=== PATIENT | female | born 2000 | race Caucasian/White ===

== ENCOUNTER 2018-08-16 15:04 | Inpatient (IN) ==
[2018-08-16] MEDS ORDERED: ACETYLCYSTEINE IV ONE (15:24)
[2018-08-16] MEDS ORDERED: DEXTROSE 5% IV ONE (15:24)
[2018-08-16 16:32] LABS: Basophils # (auto) 0.01 K/uL (0-0.2); Basophils % (auto) 0.1 %; Eosinophils # (auto) 0.03 K/uL (0-0.5); Eosinophils % (auto) 0.4 %; Hematocrit (blood only) 43.2 % (37-47); Immature Granulocytes # (auto) 0.01 K/uL (0.00-0.02); Immature Granulocytes % (auto) 0.1 %; Lymphocytes # (auto) 1.14 K/uL (1.2-3.4); Lymphocytes % (auto) 13.6 %; Mean Corpuscular Hgb Conc 34.7 g/dL (32-36); Mean Corpuscular Volume 90.8 fL (80-100); Mean Platelet Volume 11.6 fL (7.4-10.4); Monocytes # (auto) 0.45 K/uL (0.11-0.59); Monocytes % (auto) 5.4 %; Neutrophils # (auto) 6.76 K/uL (1.4-6.5); Neutrophils % (auto) 80.4 %; Platelet Count 213 K/uL (130-400); RDW Coefficient of Variation 12.7 % (11.5-14.5); RDW Standard Deviation 42.3 fL (36.4-46.3); Red Blood Count 4.76 M/uL (4.2-5.4)
[2018-08-16 16:35] LABS: Appearance Urine Clear (Clear); Bacteria Urine Automated Negative (Negative); Bilirubin Urine Negative (Negative); Blood Urine 2+ (Negative); Color Urine Yellow; Epithelial Cell Urine Auto >30 /lpf (0-5); Glucose Urine UA Negative (Negative); Ketones Urine Negative (Negative); Leukocyte Esterase Urine Negative (Negative); Nitrite Urine Negative (Negative); Protein Urine 1+ (Negative); RBC Urine Automated 0-4 /hpf (0-4); Specific Gravity Urine 1.016 (1.000-1.030); Urobilinogen Urine Negative (Negative); pH Urine 5.5 (4.5-7.5)
[2018-08-16 16:40] LABS: INR 1.1 (0.9-1.1); Prothrombin Time 11.1 Seconds (9.0-12.0)
[2018-08-16 16:41] LABS: Partial Thromboplastin Ratio 0.9; Partial Thromboplastin Time 25.1 Seconds (21.0-31.0)
[2018-08-16 16:50] LABS: Albumin Level 4.6 gm/dl (3.4-5.0); BUN Creatinine Ratio 12.4 (10-20); Calcium 9.1 mg/dl (8.5-10.1); Creatinine Clr Calc Pharmacy 82.1 ml/min; Est GFR (African American) 95.7; Est GFR (Non-African American) 82.6; Potassium 3.8 mmol/L (3.5-5.1)
[2018-08-16 16:51] LABS: Amphetamines+Metham, Urine Neg (Neg); Barbiturates, Urine Neg (Neg); Benzodiazepine, Urine Neg (Neg); Cocaine, Urine Neg (Neg); MDMA (Ecstacy), Urine Neg (Neg); Methadone, Urine Neg (Neg); Opiate, Urine Neg (Neg); Phencyclidine, Urine Neg (Neg)
[2018-08-16 16:52] LABS: Albumin Globulin Ratio 1.2 (0.9-2); Bilirubin,Total 0.6 mg/dl (0.2-1); Globulin 3.8 gm/dl (2.5-4.0); Total Protein 8.4 gm/dl (6.4-8.2)
[2018-08-16 17:00] LABS: Acetaminophen 32 ug/ml (10-30); Salicylate < 1.7 mg/dl (2.8-20)
--- NOTE | 2018-08-16 17:36 | History & Physical Report ---
Date of Service August 16, 2018 Assessment & Plan (1) Suicide attempt: Denies prior hx of same Attempted to cut L wrist and tylenol ingestion Psych c/s pending (2) Tylenol overdose: [id number] tabs taken Started on NAC protocol Monitor on tele Utox otherwise neg LFTs, PRP in AM (3) Depression: Started on lexapro x3 weeks, likely a side effect of this medication Will hold for now Psych c/s pending for further medication choices (4) IUD (intrauterine device) in place: (5) DVT prophylaxis: SCDs History of Present Illness Primary Care Provider: NO PCP 17 y/o F c/o attempted tylenol overdose. Pt states that she was started on lexapro 3 weeks ago. Since starting this she began having intermittent thoughts of suicide. She had not attempted this prior. She called S four times to discuss this with them, however she did not receive a return call. Today, her boyfriend called her and broke up with her, which she states "put me over the edge". She initially tried to cut her wrists with a pocket knife, but was not able to do this. She then ingested [id number] tabs of tylenol. After she did this she panicked and called her mother, who told her to come to the ED. Pt denies prior hx of SI/SA. She does have a hx of depression. She was on wellbutrin several years ago but this was stopped for ongoing anxiety thought to be caused by the wellbutrin. She had not been on any other medications for her depression until 3 weeks ago. Pt states she is somewhat nauseated now and feels "numb" and "weird". Pt denies fever, SOB, chest pain, abd pain, v/c/d, LE pain or swelling. Allergies Allergy/AdvReac Type Severity Reaction Status Date / Time clarithromycin AdvReac Severe QT Verified 08/16/18 16:36 prolongation QT prolonging medications AdvReac Severe Unknown Uncoded 08/16/18 16:38 Home Medications Home Medications Medication Instructions Recorded Confirmed Type escitalopram oxalate [Lexapro] 5 mg PO DAILY 08/16/18 08/16/18 History Past Med/Surg History Medical History Depression Family History Grandfather Heart attack Social History Feels Safe at Home: Yes Smoking Status: Never smoker Hx Alcohol Use: Yes (once every 3 weeks or so) Hx Substance Use: No Review of Systems Pertinent positives and negatives reviewed in HPI--all others negative Physical Exam Vital Signs (Past 24 Hours): Last Vital Signs Temp 37.1 C 08/16/18 15:07 Pulse 103 H 08/16/18 16:23 Resp 20 08/16/18 16:23 BP 122/74 08/16/18 16:23 Pulse Ox 99 08/16/18 16:23 Constitutional: WD/WN, vitals as above Eyes: normal visual bianchi by confrontation and + anicteric sclerae Neck: normal visual inspection and trachea midline Respiratory: normal respiratory effort, lungs clear to auscultation Cardiovascular: Rate/Rhythm: regular rate and regular rhythm Gastrointestinal (Abdomen): Inspection/Auscultation: abdomen not distended Percussion/Palpation: abdomen soft; abdomen nontender Musculoskeletal: Head/Neck/Chest: normocephalic and head atraumatic negative for edema, peripheral pulses intact Skin: no rashes, warm and dry L wrist with bandaging that is clean and dry Neurologic: awake; not confused Speech / Cognition: normal speech Psychiatric: Orientation: oriented x 3 Affect: + tearful affect Results & Data ECG Rhythm: sinus tachycardia Code Status & VTE Plan VTE Prophylaxis Plan VTE Prophylaxis will be ordered: Yes (1) Tylenol overdose Encounter type: initial encounter Injury intent: intentional self-harm Qualified Code(s): T39.1X2A - Poisoning by 4-Aminophenol derivatives, intentional self-harm, initial encounter
--- NOTE | 2018-08-16 17:37 | Emergency Department Note ---
Entered by Kaelyn Shabazz acting as a scribe for History of Present Illness General Chief complaint: Mental Health Evaluation Stated complaint: TOOK A BOTLE OF TYLENOL Source: patient History of Present Illness Onset (ago): minute(s) (50) Location: head (Overdose) Pain Consistency: + other (Episode) Maximum Pain Intensity: 0 Quality: + other (Overdose) Exacerbated By: + medication (Tylenol) Associated symptoms: + other (Depression, wrist lacerations); no fever/chills, no headaches and no nausea/vomiting The patient is a 17 year old female who presents to the Emergency Room with complaints of episode of an overdose starting 50 minutes ago. The patient reports that she took 30 Tylenol pills TUBE BUFFER. She states that she does not know if the Tylenol was Extra Strength or not. She notes that before she took the Tylenol, she cut her left wrist with a kitchen knife. The patient reports that she has been dealing with depression for the last 6 months. She states that she began taking Lexapro 3 weeks ago that worsened her depression. She explains that she does not want to . She notes that her immunizations are all up to date. She adds that her parents do not know she came to the ED today. She denies fevers, headaches, vomiting, smoking cigarettes, drinking alcohol or using drugs. Home Medications Home Medications Medication Instructions Recorded Confirmed Type escitalopram oxalate [Lexapro] 5 mg PO DAILY 08/16/18 08/16/18 History Allergies Allergy/AdvReac Type Severity Reaction Status Date / Time clarithromycin AdvReac Severe QT Verified 08/16/18 16:36 prolongation QT prolonging medications AdvReac Severe Unknown Uncoded 08/16/18 16:38 Past Med/Surg History Medical History Depression Family History Grandfather Heart attack Social History Feels Safe at Home: Yes Smoking Status: Never smoker Hx Alcohol Use: Yes (once every 3 weeks or so) Hx Substance Use: No Review of Systems See HPI for pertinent positives & negatives. and A total of 10 systems reviewed and were otherwise negative Physical Exam Vital Signs Vital Signs - 24 hr 08/16/18 15:07 08/16/18 15:48 08/16/18 16:23 Temperature 37.1 C Temperature Source Oral Sepsis Recent Fever Within 48 Hours No Sepsis Action Taken by Nursing No Action Required Pulse Rate 141 H Pulse Rate [Apical] 103 H Pulse Rhythm [Apical] Regular Pulse Strength [Apical] Normal Respiratory Rate 16 20 Respiratory Effort / Characteristics Non-Labored Spontaneous Respiratory Depth Normal Respiratory Pattern Regular Blood Pressure 156/95 H Blood Pressure [Left Arm] 122/74 Blood Pressure Mean 115 Blood Pressure Mean [Left Arm] 90 Blood Pressure Position [Left Arm] Sitting Pulse Oximetry 97 99 99 Oxygen Delivery Method Room Air Room Air Room Air 08/16/18 17:05 Temperature Temperature Source Sepsis Recent Fever Within 48 Hours Sepsis Action Taken by Nursing Pulse Rate Pulse Rate [Apical] 112 H Pulse Rhythm [Apical] Regular Pulse Strength [Apical] Normal Respiratory Rate 20 Respiratory Effort / Characteristics Non-Labored Spontaneous Respiratory Depth Normal Respiratory Pattern Regular Blood Pressure Blood Pressure [Left Arm] 138/92 Blood Pressure Mean Blood Pressure Mean [Left Arm] 107 Blood Pressure Position [Left Arm] Sitting Pulse Oximetry 98 Oxygen Delivery Method Room Air Constitutional: Vital signs reviewed. Eyes: Pupils are equal round reactive to light. Conjunctiva are noninjected. ENT: Pharynx is clear without erythema or exudate. Mucous membranes are moist. Neck supple without meningeal signs. Respiratory: Clear to auscultation bilaterally. Breath sounds are equal bilaterally. Cardiovascular: Tachycardic rate and regular rhythm. No rubs or gallops. GI: Soft, nondistended and nontender. Bowel sounds are present. Musculoskeletal: 3 superficial lacerations to left volar wrist. Integumentary: As above. Neurological: The patient is awake and alert. No focal deficits. Psychiatric: Depressed affect. Patient is crying. Course 1514: The patient was evaluated in room A8, and a complete history and physical examination were performed. 1528: I called [facility] [facility] at this time who control agrees with management. They did not recommend activated charcoal. 1705: I reevaluated the patient at this time who is calm. The patient called her mother who is on her way now. The patient reports that she is slightly nauseous but not significantly. She states that she took 24 tablets of Tylenol Extra Strength which was the contents of the entire bottle. 1712: I reviewed the patient's case with Dr. Luis GARNER hospitalist. She will evaluate the patient for further management. Consultations Consultation #1: I reviewed the patient's case with Dr. Luis GARNER hospitalist. She will evaluate the patient for further management. Time: 17:12 Administered Medications Acetylcysteine 2,850 mg/ (Dextrose) 514.25 mls @ 128.563 mls/hr IV TODAY@1640 S ; Protocol Stop: 08/16/18 20:39 Last Admin: 08/16/18 17:28 Dose: 128.6 mls/hr Documented by: [id number] Discontinued Medications Acetylcysteine 8,540 mg/ (Dextrose) 242.7 mls @ 200 mls/hr IV ONCE ONE Stop: 08/16/18 16:36 Last Infusion: 08/16/18 17:28 Dose: 0 mls/hr Documented by: [id number] Admin: 08/16/18 16:24 Dose: 200 mls/hr Documented by: [id number] Medical Decision Making Differential Diagnosis Differentials include drug overdose, liver toxicity, suicide attempt and mood disorder among others. Medical Records Attestation: I reviewed the patient's medical records. No recent pertinent visits. Home Medications Current Medication List: was personally reviewed by me Laboratory Data Attestation: I reviewed the patient's lab results. Result diagrams: 08/16/18 16:10 08/16/18 16:10 Lab Results 08/16/18 08/16/18 08/16/18 Range/Units 15:35 15:35 15:35 WBC (4.8-10.8) K/uL RBC (4.2-5.4) M/uL Hgb (12.0-16.0) g/dL Hct (37-47) % MCV (80-100) fL MCH (25-34) pg MCHC (32-36) g/dL RDW Std Deviation (36.4-46.3) fL RDW Coeff of Tejinder (11.5-14.5) % Plt Count (130-400) K/uL MPV (7.4-10.4) fL Immature Gran % (Auto) % Neut % (Auto) % Lymph % (Auto) % [place] % (Auto) % Eos % (Auto) % Baso % (Auto) % Immature Gran # (Auto) (0.00-0.02) K/uL Neut # (Auto) (1.4-6.5) K/uL Lymph # (Auto) (1.2-3.4) K/uL [place] # (Auto) (0.11-0.59) K/uL Eos # (Auto) (0-0.5) K/uL Baso # (Auto) (0-0.2) K/uL PT (9.0-12.0) Seconds INR (0.9-1.1) APTT (21.0-31.0) Seconds PTT Ratio Sodium (136-145) mmol/L Potassium (3.5-5.1) mmol/L Chloride (98-107) mmol/L Carbon Dioxide (21-32) mmol/L Anion Gap (3-11) BUN (7-18) mg/dl Creatinine (0.6-1.2) mg/dl Est Cr Clr Drug Dosing ml/min Est GFR ( Amer) Est GFR (Non-Af Amer) BUN/Creatinine Ratio (10-20) Glucose (70-99) mg/dl Calcium (8.5-10.1) mg/dl Total Bilirubin (0.2-1) mg/dl AST (15-37) U/L ALT (12-78) U/L Alkaline Phosphatase (45-117) U/L Total Protein (6.4-8.2) gm/dl Albumin (3.4-5.0) gm/dl Globulin (2.5-4.0) gm/dl Albumin/Globulin Ratio (0.9-2) Urine Color Yellow Urine Appearance Clear (Clear) Urine pH 5.5 (4.5-7.5) Ur Specific [place] 1.016 (1.000-1.030) Urine Protein 1+ H (Negative) Urine Glucose (UA) Negative (Negative) Urine Ketones Negative (Negative) Urine Blood 2+ H (Negative) Urine Nitrite Negative (Negative) Urine Bilirubin Negative (Negative) Urine Urobilinogen Negative (Negative) Ur Leukocyte Esterase Negative (Negative) Urine WBC (Auto) 1-5 (0-5) /hpf Urine RBC (Auto) 0-4 (0-4) /hpf U Hyaline Cast (Auto) 1-5 (0-5) /lpf U Epithel Cells (Auto) >30 H (0-5) /lpf Urine Bacteria (Auto) Negative (Negative) POC Ur Test NEG (NEG) Salicylates (2.8-20) mg/dl Urine Opiates Screen Neg (Neg) Ur Methadone, Qual Neg (Neg) Acetaminophen (10-30) ug/ml Urine Barbiturates Neg (Neg) Ur Phencyclidine (PCP) Neg (Neg) U Amphetamin/Meth Scrn Neg (Neg) MDMA (Ecstasy) Screen Neg (Neg) U Benzodiazepines Scrn Neg (Neg) Ur Cocaine Metabolite Neg (Neg) U Marijuana (THC) Screen Neg (Neg) Ethyl Alcohol mg/dL (0-3) mg/dl 08/16/18 08/16/18 08/16/18 Range/Units 16:10 16:10 16:10 WBC 8.40 (4.8-10.8) K/uL RBC 4.76 (4.2-5.4) M/uL Hgb 15.0 (12.0-16.0) g/dL Hct 43.2 (37-47) % MCV 90.8 (80-100) fL MCH 31.5 (25-34) pg MCHC 34.7 (32-36) g/dL RDW Std Deviation 42.3 (36.4-46.3) fL RDW Coeff of Tejinder 12.7 (11.5-14.5) % Plt Count 213 (130-400) K/uL MPV 11.6 H (7.4-10.4) fL Immature Gran % (Auto) 0.1 % Neut % (Auto) 80.4 % Lymph % (Auto) 13.6 % [place] % (Auto) 5.4 % Eos % (Auto) 0.4 % Baso % (Auto) 0.1 % Immature Gran # (Auto) 0.01 (0.00-0.02) K/uL Neut # (Auto) 6.76 H (1.4-6.5) K/uL Lymph # (Auto) 1.14 L (1.2-3.4) K/uL [place] # (Auto) 0.45 (0.11-0.59) K/uL Eos # (Auto) 0.03 (0-0.5) K/uL Baso # (Auto) 0.01 (0-0.2) K/uL PT 11.1 (9.0-12.0) Seconds INR 1.1 (0.9-1.1) APTT (21.0-31.0) Seconds PTT Ratio Sodium 140 (136-145) mmol/L Potassium 3.8 (3.5-5.1) mmol/L Chloride 107 (98-107) mmol/L Carbon Dioxide 25 (21-32) mmol/L Anion Gap 8.0 (3-11) BUN 12 (7-18) mg/dl Creatinine 0.99 (0.6-1.2) mg/dl Est Cr Clr Drug Dosing 82.1 ml/min Est GFR ( Amer) 95.7 Est GFR (Non-Af Amer) 82.6 BUN/Creatinine Ratio 12.4 (10-20) Glucose 114 H (70-99) mg/dl Calcium 9.1 (8.5-10.1) mg/dl Total Bilirubin 0.6 (0.2-1) mg/dl AST 21 (15-37) U/L ALT 20 (12-78) U/L Alkaline Phosphatase 106 (45-117) U/L Total Protein 8.4 H (6.4-8.2) gm/dl Albumin 4.6 (3.4-5.0) gm/dl Globulin 3.8 (2.5-4.0) gm/dl Albumin/Globulin Ratio 1.2 (0.9-2) Urine Color Urine Appearance (Clear) Urine pH (4.5-7.5) Ur Specific [place] (1.000-1.030) Urine Protein (Negative) Urine Glucose (UA) (Negative) Urine Ketones (Negative) Urine Blood (Negative) Urine Nitrite (Negative) Urine Bilirubin (Negative) Urine Urobilinogen (Negative) Ur Leukocyte Esterase (Negative) Urine WBC (Auto) (0-5) /hpf Urine RBC (Auto) (0-4) /hpf U Hyaline Cast (Auto) (0-5) /lpf U Epithel Cells (Auto) (0-5) /lpf Urine Bacteria (Auto) (Negative) POC Ur Test (NEG) Salicylates (2.8-20) mg/dl Urine Opiates Screen (Neg) Ur Methadone, Qual (Neg) Acetaminophen (10-30) ug/ml Urine Barbiturates (Neg) Ur Phencyclidine (PCP) (Neg) U Amphetamin/Meth Scrn (Neg) MDMA (Ecstasy) Screen (Neg) U Benzodiazepines Scrn (Neg) Ur Cocaine Metabolite (Neg) U Marijuana (THC) Screen (Neg) Ethyl Alcohol mg/dL (0-3) mg/dl 08/16/18 08/16/18 08/16/18 Range/Units 16:10 16:12 16:18 WBC (4.8-10.8) K/uL RBC (4.2-5.4) M/uL Hgb (12.0-16.0) g/dL Hct (37-47) % MCV (80-100) fL MCH (25-34) pg MCHC (32-36) g/dL RDW Std Deviation (36.4-46.3) fL RDW Coeff of Tejinder (11.5-14.5) % Plt Count (130-400) K/uL MPV (7.4-10.4) fL Immature Gran % (Auto) % Neut % (Auto) % Lymph % (Auto) % [place] % (Auto) % Eos % (Auto) % Baso % (Auto) % Immature Gran # (Auto) (0.00-0.02) K/uL Neut # (Auto) (1.4-6.5) K/uL Lymph # (Auto) (1.2-3.4) K/uL [place] # (Auto) (0.11-0.59) K/uL Eos # (Auto) (0-0.5) K/uL Baso # (Auto) (0-0.2) K/uL PT (9.0-12.0) Seconds INR (0.9-1.1) APTT 25.1 (21.0-31.0) Seconds PTT Ratio 0.9 Sodium (136-145) mmol/L Potassium (3.5-5.1) mmol/L Chloride (98-107) mmol/L Carbon Dioxide (21-32) mmol/L Anion Gap (3-11) BUN (7-18) mg/dl Creatinine (0.6-1.2) mg/dl Est Cr Clr Drug Dosing ml/min Est GFR ( Amer) Est GFR (Non-Af Amer) BUN/Creatinine Ratio (10-20) Glucose (70-99) mg/dl Calcium (8.5-10.1) mg/dl Total Bilirubin (0.2-1) mg/dl AST (15-37) U/L ALT (12-78) U/L Alkaline Phosphatase (45-117) U/L Total Protein (6.4-8.2) gm/dl Albumin (3.4-5.0) gm/dl Globulin (2.5-4.0) gm/dl Albumin/Globulin Ratio (0.9-2) Urine Color Urine Appearance (Clear) Urine pH (4.5-7.5) Ur Specific [place] (1.000-1.030) Urine Protein (Negative) Urine Glucose (UA) (Negative) Urine Ketones (Negative) Urine Blood (Negative) Urine Nitrite (Negative) Urine Bilirubin (Negative) Urine Urobilinogen (Negative) Ur Leukocyte Esterase (Negative) Urine WBC (Auto) (0-5) /hpf Urine RBC (Auto) (0-4) /hpf U Hyaline Cast (Auto) (0-5) /lpf U Epithel Cells (Auto) (0-5) /lpf Urine Bacteria (Auto) (Negative) POC Ur Test (NEG) Salicylates < 1.7 L (2.8-20) mg/dl Urine Opiates Screen (Neg) Ur Methadone, Qual (Neg) Acetaminophen 32 H (10-30) ug/ml Urine Barbiturates (Neg) Ur Phencyclidine (PCP) (Neg) U Amphetamin/Meth Scrn (Neg) MDMA (Ecstasy) Screen (Neg) U Benzodiazepines Scrn (Neg) Ur Cocaine Metabolite (Neg) U Marijuana (THC) Screen (Neg) Ethyl Alcohol mg/dL < 3.0 (0-3) mg/dl ECG Data Attestation: I personally reviewed and interpreted this ECG as follows: Indication: other (Overdose) Rate (beats per minute): 108 Rhythm: sinus tachycardia Findings: + other (No QRS widening.); no prolonged QT Blood Pressure Blood Pressure Findings: Normal blood pressure Blood Pressure Disposition: further management by hospitalist RAVINDER Alcantara I did evaluate the patient as noted above. Patient is presenting with an intentional drug overdose with acetaminophen. IV access was established. The patient was placed on a continuous cardiac rehab nurse. I did start the patient on IV N-acetylcysteine. I did order and personally review the patient's 12-lead EKG as described above. There is no evidence of prolonged QT or widening of the QRS. I did discuss the case with poison control who agreed with my management. They did not recommend activated charcoal. I did order a urine analysis. I did order and review the patient's blood work as noted in the electronic medical record. Initial Tylenol level was 34. A repeat level will be drawn at 630 which is 4 hours after ingestion. LFTs are normal. PT PTT are normal as well. I did reassess the patient. She is much calmer at this time. She stated that she took an entire bottle of Tylenol which she says is extra strength. The bottle contained 24 tablets. Calculation using this shows an ingestion of 12 g. I did discuss the test results with the patient. She feels slightly nauseous but does not need anything. She will be hospitalized for further care and jack luation. I did discuss case with the hospitalist and case technician. Impression & Plan Suicide attempt, Tylenol overdose, Mood disorder, Laceration of wrist Discharge Plan Visit Data Chief Complaint: Mental Health Evaluation Stated Complaint: TOOK A BOTLE OF TYLENOL ED Provider: Agustin Vaughan Discharge Problem: Suicide attempt, Tylenol overdose, Mood disorder, Laceration of wrist Patient Disposition: Being Evaluated by Hospitalist Forms Stand Alone Forms: My [facility] Prescriptions Prescriptions: No Action escitalopram oxalate [Lexapro] 5 mg Tablet 5 mg PO DAILY RF: 0 Referrals Referrals: PCP,NO [Primary Care Provider] - Discharge Problem: Tylenol overdose Qualifiers: Encounter type: initial encounter Injury intent: intentional self-harm Qualified Code(s): T39.1X2A - Poisoning by 4-Aminophenol derivatives, intentional self-harm, initial encounter Laceration of wrist Qualifiers: Encounter type: initial encounter Laterality: left Qualified Code(s): S61.512A - Laceration without foreign body of left wrist, initial encounter The scribe's documentation has been prepared under my direction and personally reviewed by me in its entirety. I confirm that the note above accurately reflects all work, treatment, procedures, and medical decision making performed by me.
[2018-08-16] MEDS ORDERED: ONDANSETRON INJ 2 MG/ML 2 ML VIAL IV PRN (20:06)
[2018-08-16] MEDS ORDERED: MAGNESIUM HYDROXIDE SUSP 30 ML UDC PO PRN (20:06)
[2018-08-16] MEDS: NSS + 20MEQ KCL 20 MEQ/1,000 ML BAG IV SCH (21:52)
[2018-08-16] MEDS ORDERED: Nursing to Pharmacy Communication ONE (22:24)
[2018-08-17 07:26] LABS: BUN Creatinine Ratio 11.3 (10-20); Calcium 8.4 mg/dl (8.5-10.1); Creatinine Clr Calc Pharmacy 107.7 ml/min; Est GFR (African American) 136.1; Est GFR (Non-African American) 117.4; Potassium 3.3 mmol/L (3.5-5.1)
[2018-08-17] MEDS: NSS + 20MEQ KCL 20 MEQ/1,000 ML BAG IV SCH (08:24)
[2018-08-17 08:36] LABS: Albumin Level 3.4 gm/dl (3.4-5.0); Bilirubin Direct 0.2 mg/dl (0-0.2); Bilirubin,Total 0.6 mg/dl (0.2-1); Total Protein 6.3 gm/dl (6.4-8.2)
[2018-08-17 08:38] LABS: Estimated Average Glucose 103 mg/dl; Hemoglobin A1C 5.2 % (4.5-5.6)
[2018-08-17] MEDS ORDERED: PANTOprazole 40 MG TAB PO PRN (09:52)
--- NOTE | 2018-08-17 13:02 | Psychiatric Consultation ---
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, admitted medically following a toxic ingestion of acetaminophen. I am recommending inpatient mental health treatment when medically cleared. We do not have a bed on our unit at this time. The patient should not be allowed to leave the hospital AMA as she would meet criteria for an involuntary commitment. That having been said, I believe that she is willing for voluntary treatment. (1) Suicide attempt: 08/17 - Recommend inpatient mental health treatment when medically cleared - She should not be allowed to leave AMA given her suicide attempt, and would meet criteria for a 302 involuntary commitment. Present on Admission?: Yes Inventory Assets Strengths: Good student, support from mother Needs: Healthy coping strategy Risk Factors Assessment Male: No : Yes Do You Have Access To A Gun?: No Health Problems: No Mental Health Diagnoses: Yes Substance Use Disorders: No Previous Attempt: No Family History of Suicide: No Previous Psychiatric Hospitalization: No Protective Factors Assessment : No Responsible for Young Children: No Employed: No Supportive Family: Yes CPT Code 20293 Psych History Identifying Data 17-year-old [employer] student admitted following a toxic ingestion of about 24 Tylenol pills, 500 mg each. Chief Complaint " I been depressed for a while". History of Present Illness The patient is seen in the presence of her mother, with her permission. The patient reports that she is not seeing very well today because she does not have her contact lenses. She admits that she has been depressed for many months and several weeks ago was started on Lexapro by her PCP. She admits that even prior to Lexapro she would have good days and bad days but since starting on Lexapro the bad days seem to be worse than ever. She denies any history of suicide attempts or hospitalizations but says that yesterday her boyfriend called and broke up with her and that "put me over the edge" and she attempted suicide. She says that she took about 24 Tylenol pills, each 500 mg. She became scared, called her mother who told her to go to the emergency room. She has been seeing a [facility], [facility] It is reported that she had called her provider several times to talk about the medications but did not receive a call back. Today she remains depressed. She admits to attempting to kill herself by overdose. She reports sleeping to excess, sometimes 12 hours a day. She has low energy, poor concentration and and impaired appetite resulting in about a 10 pound weight loss over the last month. She reports "crippling" anxiety and this is been chronic. She endorses panic attacks with unknown triggers that can last up to an hour. She denies ever having had any auditory or visual hallucinatio ns. She denies symptoms of OCD, eating disorders or self-injurious behaviors. Past Psychiatric History Outpatient Services: Therapist, [facility] Previous Psych Admissions: Denies Do You Have Access To A Gun?: No History of Previous Suicide Attempt: No Past Medication Trials: Wellbutrintook for only several days Allergies Allergy/AdvReac Type Severity Reaction Status Date / Time clarithromycin AdvReac Severe QT Verified 08/16/18 16:36 prolongation QT prolonging medications AdvReac Severe Unknown Uncoded 08/16/18 16:38 Home Medications Home Medications Medication Instructions Recorded Confirmed Type escitalopram oxalate [Lexapro] 5 mg PO DAILY 08/16/18 08/16/18 History Family History Bipolar disorder, depression and anxiety on her father's side. There is also alcohol use on father side. Substance Abuse History Will consume alcohol about 1 time per month with friends Personal History Living Arrangements: Dorm Born In: 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 Employment Status: Student Marital Status: Single Beliefs That Will Affect Care: None Patient History Medical History Depression Family History Grandfather Heart attack Social History Preferred Language: Anguillan Communication Ability: Effective Supervisor Properties Required: No Beliefs That Will Affect Care: None Current Living Situation: Other Current Living Situation Comment: Lives in appartment with roommate Other Information That Helps Us Care for You: Yes Feels Safe at Home: Yes Safety Concerns: Feels Safe At This Time Smoking Status: Never smoker Hx Alcohol Use: Yes Hx Substance Use: No Physical Exam Psychiatric Orientation: alert, oriented x 3 and cooperative Apperance: appropriately dressed and appropriately groomed Eye Contact: good eye contact Motor Behavior: no abnormal motor movements Speech: normal rate/rhythm/volume of speech Affect: + depressed affect and + flat affect Mood: + depressed mood Thought Process: goal directed thought process Thought Content: reality based without delusions Suicidal Thoughts: + reports suicidal thoughts, + reports suicidal plan and + reports suicidal intent (Intentional overdose of Tylenol) Homicidal Thoughts: + reports homicidal thoughts Hallucinations: no auditory hallucinations and no visual hallucinations Cognition: recent memory grossly intact, remote memory grossly intact, attention grossly intact and language grossly intact Estimated Intelligence: average estimated intelligence Insight: + impaired insight Judgement: + impaired judgement Vital Signs (Past 24 Hours) Last Vital Signs Temp 37 C 08/17/18 07:02 Pulse 100 H 08/17/18 11:06 Resp 20 08/17/18 11:06 BP 106/65 08/17/18 11:06 Pulse Ox 93 08/17/18 11:06 Results & Data Medications Administered Potassium Chloride/Sodium Chloride (Normal Saline W/20 Meq Kcl) 20 meq in 1,000 mls @ 80 mls/hr IV .[id number] [facility] Stop: 09/15/18 20:14 Last Admin: 08/17/18 08:24 Dose: 80 mls/hr Documented by: [id number] Infusion: 08/17/18 08:24 Dose: 80 mls/hr Documented by: [id number] Admin: 08/16/18 21:52 Dose: 80 mls/hr Documented by: [id number]
--- NOTE | 2018-08-17 16:41 | Family Medicine Progress Note ---
Date of Service August 17, 2018 Assessment & Plan (1) Suicide attempt: (2) Tylenol overdose: Suicide attempt: Attempted to cut L wrist and tylenol ingestion For inpatient psychiatric admission once bed available. Medically stable to be discharged for psychiatric admission Tylenol overdose: [id number] tabs taken Received NAC protocol on admission. Utox otherwise neg LFTs, PRP stable Left wrist superficial lacerations dressing per nursing Nausea PPI ordered for prn use. Would prefer to not use medication for nausea. Depression: Was Started on lexapro x3 weeks Held on admission for concern of adverse effect Psych consulted - inpatient admission. DVT prophylaxis: SCDs Subjective Slept overnight. feeling nauseous this morning. has not had much to eat. no abdominal pain offered protonix and zofran for nausea - would like to not use any med for her symptoms. mom at bedside. Physical Exam Vital Signs (Past 24 Hours): Last Vital Signs Temp 36.9 C 08/17/18 15:09 Pulse 84 08/17/18 15:09 Resp 20 08/17/18 15:09 BP 131/83 08/17/18 15:09 Pulse Ox 99 08/17/18 15:09 Constitutional: WD/WN, vitals as above Respiratory: normal respiratory effort, lungs clear to auscultation Cardiovascular: RRR, no murmur, no edema Gastrointestinal (Abdomen): normal bowel sounds, soft, nontender, no hepatosplenomegaly Skin: left wrist - superficial lacerations. (1) Tylenol overdose Encounter type: initial encounter Injury intent: intentional self-harm Qualified Code(s): T39.1X2A - Poisoning by 4-Aminophenol derivatives, intentional self-harm, initial encounter
--- NOTE | 2018-08-18 10:54 | Discharge Summary ---
Date of Service August 18, 2018 Admission HPI Per Admitting Provider The patient is seen in the presence of her mother, with her permission. The patient reports that she is not seeing very well today because she does not have her contact lenses. She admits that she has been depressed for many months and several weeks ago was started on Lexapro by her PCP. She admits that even prior to Lexapro she would have good days and bad days but since starting on Lexapro the bad days seem to be worse than ever. She denies any history of suicide attempts or hospitalizations but says that yesterday her boyfriend called and broke up with her and that "put me over the edge" and she attempted suicide. She says that she took about 24 Tylenol pills, each 500 mg. She became scared, called her mother who told her to go to the emergency room. She has been seeing a therapist, [facility] It is reported that she had called her provider several times to talk about the medications but did not receive a call back. Today she remains depressed. She admits to attempting to kill herself by overdose. She reports sleeping to excess, sometimes 12 hours a day. She has low energy, poor concentration and and impaired appetite resulting in about a 10 pound weight loss over the last month. She reports "crippling" anxiety and this is been chronic. She endorses panic attacks with unknown triggers that can last up to an hour. She denies ever having had any auditory or visual hallucinations. She denies symptoms of OCD, eating disorders or self-injurious behaviors. Principal Diagnosis Suicide attempt Tylenol overdose Discharge Exam Constitutional WD/WN, vitals as above Respiratory normal respiratory effort, lungs clear to auscultation Cardiovascular RRR, no murmur, no edema Gastrointestinal (Abdomen) normal bowel sounds, soft, nontender, no hepatosplenomegaly Discharge Data Allergies Allergy/AdvReac Type Severity Reaction Status Date / Time clarithromycin AdvReac Severe QT Verified 08/16/18 16:36 prolongation QT prolonging medications AdvReac Severe Unknown Uncoded 08/16/18 16:38 Consultations 08/16/18 17:19 ED Decision to Admit Stat 08/16/18 20:06 Consult Case Management - Discharge Planning Routine Consult Psychiatry Routine Hospital Course (1) Suicide attempt: (2) Tylenol overdose: 17 y/o F presented after suicide attempt via tylenol overdose Suicide attempt: Attempted to cut L wrist and tylenol ingestion Medically stable to be discharged for psychiatric admission Tylenol overdose: [id number] tabs taken Gastric lavage not recommended by poison control. Received NAC protocol on admission. Utox otherwise neg LFTs, PRP stable Nausea Resolved. Depression: Was Started on lexapro x3 weeks Held on admission for concern of adverse effect Psych consulted - inpatient admission. Hypokalemia replaced K Total Time Total Time Spent Total Time Spent (In Minutes): 35 min Discharge Plan Discharge Items Patient Disposition: Transfer Behavioral Health Fac Reason For Visit: TYLENOL OVERDOSE Discharge Diagnosis: Suicide Attempt Discharge Goals: Improve disease control Activity: Resume your previous activity Non-emergency contact: Primary Care Provider Call non-emergency contact if: you have any medication questions Follow-up/Referrals: PCP,ROM [Primary Care Provider] - Diet: Regular Addtl Provider Instructions: To follow up with Primary care physician in 1-2 wks after psychiatric inpatient hospitalization Prescriptions: Discontinued escitalopram oxalate [Lexapro] 5 mg Tablet 5 mg PO DAILY RF: 0 Stand-Alone Forms: [facility] Discharge Orders: Discharge Order (Routine); Ordered 08/18/18 Ordered By: Kenia Reinoso Admission Data Admit Date/Time: 08/16/18 17:28 Attending Provider: Kenia Reinoso Admit Provider: Adia Smith Primary Care Provider: PCP,NO Other Providers: Adia Smith ; Melvina Marcus Service: Telemetry Other Interventions: Discharge Summary Assessment (RN) Last Done: 08/18/18 12:26 DC Date/Time DO NOT enter until pt leaves facility: 08/18/18 12:34
== END 2018-08-18 12:34 | DRG 918 ==
LOC: ED 15:04 → 2E 17:28 → SUATTDRO 17:28 → 2E 19:40

== ENCOUNTER 2018-08-18 11:43 | Inpatient (IN) ==
[2018-08-18] MEDS ORDERED: MAGNESIUM HYDROXIDE SUSP 30 ML UDC PO PRN (13:09)
[2018-08-18] MEDS ORDERED: BISMUTH SUBSALICYLATE PER ML OMNICELL CHARGE PO PRN (13:09)
[2018-08-18] MEDS ORDERED: SODIUM CHLORIDE 0.65% NA SOLN 45 ML (OCEAN) PRN (13:09)
[2018-08-18] MEDS ORDERED: ACETAMINOPHEN 325 MG TAB PO PRN (13:09)
[2018-08-18] MEDS ORDERED: ALUMINUM/MAGNESIUM SUSP 30 ML UDC PO PRN (13:09)
--- NOTE | 2018-08-18 13:28 | History & Physical ---
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 She is admitted voluntarily. The patient has lost confidence in Lexapro which she has been taking for several weeks and so this will be discontinued in favor of Zoloft 25 mg today increasing to 50 mg tomorrow. Risks, benefits, alternatives were reviewed and accepted including the black box warning, risk for GI side effects and sexual side effects. Family meeting will be arranged, her mother is leaving today but father will be coming to town to take her place. She will need appropriate psychiatric aftercare. If she is going to remain in this area for the summer she will need a local psychiatric prescriber. At this time, the patient requires inpatient mental health treatment due to the severity of her condition, and the risk for self- harm if discharged. (1) Depression: 08/18 - DC Lexapro - Start Zoloft 25 mg today increasing to 50 mg tomorrow - Q 15 min checks for safety - Encourage participation in group and individual counseling - Family meeting - Psychiatric aftercare - Safety planning - Assist the patient to explore healthy coping strategies. - Coordinate care with current therapist, Selin Delatorre Present on Admission?: Yes Inventory Assets Strengths: Intelligence, support from parents Needs: Healthy coping strategies Risk Factors Assessment Male: No : Yes Do You Have Access To A Gun?: No Health Problems: No Mental Health Diagnoses: Yes Substance Use Disorders: No Previous Attempt: No Previous Psychiatric Hospitalization: No Smoker: No Protective Factors Assessment : No Responsible for Young Children: No Employed: No Supportive Family: Yes Psychiatric History Identifying Data CLOVER BEJARANO is a 17-year-old [employer] student, initially admitted to the medical floor following a toxic ingestion of tylenol in a suicide attempt. She is medically cleared and admitted to our unit voluntarily for treatment. Information is gathered from the patient and considered to be reliable. Chief Complaint "Its overwhelming. ". 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 She receives medications through her PCP at home in [place]. She admits that she has been under increasing stress over recent months due to school pressures and a deteriorating relationship with her boyfriend. She admits that she had chosen to rely solely on her boyfriend for support which was overwhelming and unfair, leading to his calling the day of the overdose to breakup with her. This was the final straw for her and she took an overdose of 24 acetaminophen 500 mg pills. She immediately got scared, called her mother who told her to go to the emergency room which she did. She was admitted medically, cleared for mental health treatment today. The patient further expands that because of her depression, she has had problems with motivation and energy which have led her to not attend all her classes which makes things even more challenging for her. The more behind she got the where she felt. She admits that she has had suicidal thoughts in the past, specifically when she has a panic attack and then she is describes getting "tunnel vision" which leads to suicidal ideation. She has never acted on it until the day of admission. She is still worried that Lexapro which was started 2 weeks before admission, contributed to her worsening mood and also contributed to making her feel tired. She feels that she was sleeping to excess, 12 h ours/day and believes that this correlated with the Lexapro. She reports "crippling" anxiety with panic attacks which lead her as I said to having tunnel vision and suicidality. She denies ever having had auditory or visual hallucinations. She denies symptoms of eating disorder, OCD, PTSD or bipolar disorder. She notes that there is a very strong family history of bipolar disorder in grandparents, 2 aunts and an uncle as well as depression and anxiety and at least 3 cousins. She believes that most of them are well medicated and under control. Past Psychiatric History Previous Psych History: [facility] Current Psychiatric Diagnosis: Depression and anxiety Outpatient Services: [facility] for therapy Previous Psych Admissions: Denies Do You Have Access To A Gun?: No History of Previous Suicide Attempt: No Past Medication Trials: Wellbutrinonly took for 2 days Past Head Trauma/Neuro History History of Concussion/Seizure: Yes Concussion from roughhousing with brother Allergies Allergy/AdvReac Type Severity Reaction Status Date / Time clarithromycin AdvReac Severe QT Verified 08/16/18 16:36 prolongation QT prolonging medications AdvReac Severe Unknown Uncoded 08/16/18 16:38 Alcohol History Hx of Alcohol Use Over the Past 12 Months: Yes Drinks with friends about 1 time per month Smoking Use Smoking Status: Never smoker Substance History Hx of Prescription Med Misuse Over the Past 12 Months: No Hx of Over the Counter Med Misuse Over the Past 12 Months: No Hx of Inhalent Misuse Over the Past 12 Months: No Hx of Organic Substance Use Over the Past 12 Months: No Hx of Illegal Substances/Street Drug Use Over Past 12 Months: No Personal History Living Arrangements: APartment Born In: [facility] Highest Grade Completed: College Highest Grade Completed Comment: Sophomore in pharmacology, 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 Employment Status: Student Beliefs That Will Affect Care: None Hx Legal Problems: No Hx Traumatic Life Events: No Patient History Social History Preferred Language: Lithuanian Communication Ability: Effective Beliefs That Will Affect Care: None Current Living Situation: Other Current Living Situation Comment: Lives in appartment with roommate Feels Safe at Home: Yes Smoking Status: Never smoker Hx Alcohol Use: Yes Hx Substance Use: No Review of Systems All systems reviewed & are unremarkable except as noted in HPI & below Gastrointestinal: + nausea Physical Exam Mental Examination Exam performed while on the medical floor has been reviewed and accepted his medical clearance for our unit. Psychiatric Orientation: alert, oriented x 3 and cooperative Apperance: appropriately dressed and appropriately groomed Eye Contact: good eye contact Motor Behavior: steady gait and station and no abnormal motor movements Speech: normal rate/rhythm/volume of speech Affect: + depressed affect and + flat affect Mood: + depressed mood and + anxious mood Thought Process: goal directed thought process Thought Content: reality based without delusions Suicidal Thoughts: denies suicidal thoughts (Denies thoughts today but admits to suicidal thoughts and an intentional overdose on the day of admission to the medical floor) Homicidal Thoughts: denies homicidal thoughts Hallucinations: no auditory hallucinations and no visual hallucinations Cognition: recent memory grossly intact, remote memory grossly intact, attention grossly intact and language grossly intact Estimated Intelligence: average estimated intelligence Insight: + impaired insight Judgement: + impaired judgement Results & Data Current Inpatient Medications Current Inpatient Medications: Current Inpatient Medications Acetaminophen (Tylenol) 650 mg PO Q4H PRN PRN Reason: Headache or Minor Fever Stop: 09/17/18 13:08 Al Hydrox/Mg Hydrox/Simethicone (Maalox) 30 ml PO Q4H PRN PRN Reason: GI Upset Stop: 09/17/18 13:08 Bismuth Subsalicylate (Kaopectate) 15 ml PO PRN PRN PRN Reason: Loose Stool Stop: 09/17/18 13:08 Hydroxyzine HCl (Vistaril) 50 mg PO HSZ PRN PRN Reason: Insomnia Stop: 09/17/18 13:08 Hydroxyzine HCl (Vistaril) 25 mg PO Q4H PRN PRN Reason: Anxiety Stop: 09/17/18 13:08 Magnesium Hydroxide (Milk Of Magnesia) 30 ml PO DAILY PRN PRN Reason: Heartburn Stop: 09/17/18 13:08 Sertraline HCl (Zoloft) 50 mg PO QAM CHEO Stop: 09/18/18 08:59 Sertraline HCl (Zoloft) 25 mg PO NOW ONE Stop: 08/18/18 13:12 Sodium Chloride (Catahoula Nasal) 1 - 2 sprays NA PRN PRN PRN Reason: Nasal Dryness/Congestion Stop: 09/17/18 13:08 CPT Code CPT Code Initial Hospital Care: [id number]
[2018-08-18] MEDS ORDERED: SERTRALINE HCL 50 MG TABLET PO ONE (14:40)
[2018-08-19] MEDS: SERTRALINE HCL 50 MG TABLET PO SCH (09:31)
--- NOTE | 2018-08-19 14:06 | Psychiatric Progress Note ---
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 On admission, she was switched from Lexapro to Zoloft. She is being referred for outpatient psychiatric care, and a family meeting arranged with her parents. Although she reports improved mood and is denying suicidal thoughts, she had a very serious suicide attempt, and remains at high risk of rapid decompensation if she is discharged prematurely, without a chance to process her stressors and develop a strong safety plan. (1) Depression: 08/18 - DC Lexapro - Start Zoloft 25 mg today increasing to 50 mg tomorrow - Q 15 min checks for safety - Encourage participation in group and individual counseling - Family meeting - Psychiatric aftercare - Safety planning - Assist the patient to explore healthy coping strategies. - Coordinate care with current therapist, [facility] 08/19 -Increase sertraline to 50 mg daily. -Family meeting with parents. -Refer for outpatient psychiatric care. Inventory Assets Strengths: Intelligence, support from parents Needs: Healthy coping strategies Risk Factors Assessment Male: No : Yes Do You Have Access To A Gun?: No Health Problems: No Mental Health Diagnoses: Yes Substance Use Disorders: No Previous Attempt: No Previous Psychiatric Hospitalization: No Smoker: No Protective Factors Assessment : No Responsible for Young Children: No Employed: No Supportive Family: Yes Interval History Identifying Information CLOVER BEJARANO is a 17-year-old [employer] student from [place], initially admitted to the medical floor for 719 following a toxic ingestion of Tylenol in a suicide attempt. She was medically cleared and admitted to our unit voluntarily on 08/18/2018. Chief Complaint "Just trying to do what I need to do to get better". Review of Systems Sleep Information Total Hours of Sleep: 5 Meal Information Percent Meal Consumed - Breakfast: 90 Percent Meal Consumed - Dinner: 100 Subjective Subjective Patient was seen & assessed and interval progress reviewed with Treatment Team. Staff report she has been pleasant and cooperative, attending and participating in groups, and agreed to a family meeting with parents. On my assessment, she reports mood is improving, denies suicidal thoughts, and is focused on working in treatment so that she can feel better and return to school and her life. She says that she is working on opening up to others, as her ex-boyfriend was her only support, which she recognizes was not healthy. She is tolerating sertraline well and denies any side effects. Physical Exam Mental Examination Thin white female appearing her stated age. Casually dressed, adequately groomed, seated in no acute distress. Large bandage on left forearm. Calm, cooperative, and pleasant. No abnormal movements, gait and station normal. Mood is "getting better," and affect is reactive and appropriate. Speech is normal rate, volume, and tone. Thoughts are goal-directed. Denies SI, HI; no paranoia, hallucinations, or delusions evident. Alert and oriented. Level of intelligence consistent with education. Memory, attention, and language are intact. Insight and judgment are fair. Vital Signs (Past 24 Hours) Last Vital Signs Temp 36.8 C 08/19/18 06:40 Pulse 80 08/19/18 06:41 Resp 16 08/19/18 06:40 BP 109/70 08/19/18 06:41 Results & Data Current Inpatient Medications Current Inpatient Medications: Current Inpatient Medications Acetaminophen (Tylenol) 650 mg PO Q4H PRN PRN Reason: Headache or Minor Fever Stop: 09/17/18 13:08 Al Hydrox/Mg Hydrox/Simethicone (Maalox) 30 ml PO Q4H PRN PRN Reason: GI Upset Stop: 09/17/18 13:08 Bismuth Subsalicylate (Kaopectate) 15 ml PO PRN PRN PRN Reason: Loose Stool Stop: 09/17/18 13:08 Hydroxyzine HCl (Vistaril) 50 mg PO HSZ PRN; Protocol PRN Reason: Insomnia Stop: 09/17/18 13:08 Hydroxyzine HCl (Vistaril) 25 mg PO Q4H PRN; Protocol PRN Reason: Anxiety Stop: 09/17/18 13:08 Magnesium Hydroxide (Milk Of Magnesia) 30 ml PO DAILY PRN PRN Reason: Heartburn Stop: 09/17/18 13:08 Sertraline HCl (Zoloft) 50 mg PO QAM CHEO Stop: 09/18/18 08:59 Last Admin: 08/19/18 09:31 Dose: 50 mg Documented by: Sodium Chloride (Floyd Nasal) 1 - 2 sprays NA PRN PRN PRN Reason: Nasal Dryness/Congestion Stop: 09/17/18 13:08 Post Discharge Appointments Primary Care Physician Name Of Family Doctor: URI Denise Therapist Name of Therapist: [facility] Date of Therapist Appointment: 08/21/18 Time of Therapist Appointment: 1pm CPT Code CPT Code 09905
[2018-08-20] MEDS: SERTRALINE HCL 50 MG TABLET PO SCH (09:06)
--- NOTE | 2018-08-20 14:16 | Psychiatric Progress Note ---
Date of Service August 20, 2018 Impression / Recommendations Impression Pt reports improvement in mood and states she has been benefiting from group and recreational therapies provided. Family meeting completed today with parents. Pt requesting discussion about her current medication regimen. After providing education, the patient verbalizes willingness for further titration. We compromise on a dose of 75mg daily, to begin tomorrow morning. Would ideally see ongoing stability of mood and anxiety after processing stressors with family today. Could consider discharge tomorrow if condition remains improved, as has a therapy appointment scheduled. (1) Depression: 08/18 - DC Lexapro - Start Zoloft 25 mg today increasing to 50 mg tomorrow - Q 15 min checks for safety - Encourage participation in group and individual counseling - Family meeting - Psychiatric aftercare - Safety planning - Assist the patient to explore healthy coping strategies. - Coordinate care with current therapist, [facility] 08/19 -Increase sertraline to 50 mg daily. -Family meeting with parents. -Refer for outpatient psychiatric care. 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 She was medically cleared and admitted to our unit voluntarily on 08/18/2018. Chief Complaint "It has been so good being here". Review of Systems Notes Constitutional: denied Cardiovascular: denied Respiratory: denied Gastrointestinal: denied Neurological: denied Psychiatric: denies symptoms other than stated above Total of at least 10 systems reviewed, pertinent positives as above and in HPI. Sleep Information Total Hours of Sleep: 7.25 Meal Information Percent Meal Consumed - Breakfast: 90 Percent Meal Consumed - Lunch: 70 Percent Meal Consumed - Dinner: 75 Subjective Subjective Patient was seen & assessed and interval progress reviewed with Nursing. Staff reports the patient has been doing well overall, but is a bit hesitant with medication adjustments. Pt was seen today to assess progress since admission. Pt states that she is having a good day, and that she has benefited greatly from her stay. She reports she has become better at opening up about her emotions, sharing with the group, individual counselors, and her parents. She had a family meeting this morning and states it went very well. We discussed target dosing for her sertraline and she asked appropriate and insightful medication questions. Pt is interested in attending her outpatient therapy appointment tomorrow afternoon. We discussed that this may be a possibility should mood and anxiety remains stable. Physical Exam Psychiatric Orientation: alert, oriented x 3 and cooperative Apperance: appropriately dressed, appropriately groomed and appeared stated age Eye Contact: good eye contact Motor Behavior: steady gait and station and no abnormal motor movements Speech: normal rate/rhythm/volume of speech Affect: euthymic affect Mood: + anxious mood; no depressed mood Thought Process: goal directed thought process, linear/logical thought process and clear/coherent thought process Thought Content: reality based without delusions Suicidal Thoughts: denies suicidal thoughts (SI and overdose prior to admission; denies SI at this point in stay) Homicidal Thoughts: denies homicidal thoughts Hallucinations: no auditory hallucinations and no visual hallucinations Cognition: recent memory grossly intact, remote memory grossly intact, attention grossly intact and language grossly intact Estimated Intelligence: average estimated intelligence Insight: + fair insight Judgement: + fair judgement Vital Signs (Past 24 Hours) Last Vital Signs Temp 36.7 C 08/20/18 06:00 Pulse 116 H 08/20/18 06:00 Resp 14 08/20/18 06:00 BP 120/78 08/20/18 06:00 Results & Data Current Inpatient Medications Current Inpatient Medications: Current Inpatient Medications Acetaminophen (Tylenol) 650 mg PO Q4H PRN PRN Reason: Headache or Minor Fever Stop: 09/17/18 13:08 Al Hydrox/Mg Hydrox/Simethicone (Maalox) 30 ml PO Q4H PRN PRN Reason: GI Upset Stop: 09/17/18 13:08 Bismuth Subsalicylate (Kaopectate) 15 ml PO PRN PRN PRN Reason: Loose Stool Stop: 09/17/18 13:08 Hydroxyzine HCl (Vistaril) 50 mg PO HSZ PRN; Protocol PRN Reason: Insomnia Stop: 09/17/18 13:08 Hydroxyzine HCl (Vistaril) 25 mg PO Q4H PRN; Protocol PRN Reason: Anxiety Stop: 09/17/18 13:08 Magnesium Hydroxide (Milk Of Magnesia) 30 ml PO DAILY PRN PRN Reason: Heartburn Stop: 09/17/18 13:08 Sertraline HCl (Zoloft) 50 mg PO QAM CHEO Stop: 09/18/18 08:59 Last Admin: 08/20/18 09:06 Dose: 50 mg Documented by: Sodium Chloride (Clementon Nasal) 1 - 2 sprays NA PRN PRN PRN Reason: Nasal Dryness/Congestion Stop: 09/17/18 13:08 Post Discharge Appointments Primary Care Physician Name Of Family Doctor: URI Denise MD Primary Care Date of Appointment with PCP: 08/27/18 Time of Appointment with PCP: 9:30am Provider Appointment Comment: [address] [place] [id number] Psychiatrist Name of Psychiatrist: MEHRAN Shell Psychiatrist's Date of Appointment with Psychiatrist: 08/26/18 Time of Appointment with Psychiatrist: 9am Psychiatric Appointment Comment: [address] [place] [phone] Therapist Name of Therapist: [facility] Eduardo Priscilla Lacy Therapist's Date of Therapist Appointment: 08/21/18 Time of Therapist Appointment: 1pm Therapy Appointment Comment: also 08/26 8am, 09/04 11am, 09/10 3pm, on the cancellation list for other time Driller Operator Name of Driller Operator: [facility] Phone Number for Driller Operator: [phone] Date of Appointment with Driller Operator: 08/24/18 Time of Appointment with Driller Operator: 3:30pm Case Management Appointment Comment: [address] [place] [id number] Contact Information Discharge Discharge Address: School: [address] [place] [address], [address], [place] [address] Contact Information Comment: Home: [address] , [place] [address] CPT Code CPT Code 91663
[2018-08-21] MEDS ORDERED: SERTRALINE HCL 50 MG TABLET PO SCH (09:00)
--- NOTE | 2018-08-21 09:57 | Discharge Summary ---
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 She receives medications through her PCP at home in [place]. She admits that she has been under increasing stress over recent months due to school pressures and a deteriorating relationship with her boyfriend. She admits that she had chosen to rely solely on her boyfriend for support which was overwhelming and unfair, leading to his calling the day of the overdose to breakup with her. This was the final straw for her and she took an overdose of 24 acetaminophen 500 mg pills. She immediately got scared, called her mother who told her to go to the emergency room which she did. She was admitted medically, cleared for mental health treatment today. The patient further expands that because of her depression, she has had problems with motivation and energy which have led her to not attend all her classes which makes things even more challenging for her. The more behind she got the where she felt. She admits that she has had suicidal thoughts in the past, specifically when she has a panic attack and then she is describes getting "tunnel vision" which leads to suicidal ideation. She has never acted on it until the day of admission. She is still worried that Lexapro which was started 2 weeks before admission, contributed to her worsening mood and also contributed to making her feel tired. She feels that she was sleeping to excess, 12 hours/day and believes that this correlated with the Lexapro. She reports "crippling" anxiety with panic attacks which lead her as I said to having tunnel vision and suicidality. She denies ever having had auditory or visual hallucinations. She denies symptoms of eating disorder, OCD, PTSD or bipolar disorder. She notes that there is a very strong family history of bipolar disorder in grandparents, 2 aunts and an uncle as well as depression and anxiety and at least 3 cousins. She believes that most of them are well medicated and under control. Physical Exam Psychiatric Orientation: alert, oriented x 3 and cooperative Apperance: appropriately dressed, appropriately groomed and appeared stated age Eye Contact: good eye contact Motor Behavior: steady gait and station and no abnormal motor movements Speech: normal rate/rhythm/volume of speech Affect: euthymic affect; no depressed affect and no flat affect Mood: + anxious mood (mildly); no depressed mood "I feel really good. Some anxiety, but its definitely manageable." Thought Process: goal directed thought process, linear/logical thought process and clear/coherent thought process Thought Content: reality based without delusions Suicidal Thoughts: denies suicidal thoughts Homicidal Thoughts: denies homicidal thoughts Hallucinations: no auditory hallucinations and no visual hallucinations Cognition: recent memory grossly intact, remote memory grossly intact, attention grossly intact and language grossly intact Estimated Intelligence: average estimated intelligence Insight: good insight Judgement: good judgement Vital Signs (Past 24 Hours) Last Vital Signs Temp 36.7 C 08/21/18 09:40 Pulse 88 08/21/18 09:40 Resp 16 08/21/18 09:40 BP 120/78 08/21/18 09:40 Principal Diagnosis Major depressive disorder Psychiatric Data 17-year-old female admitted voluntarily for inpatient psychiatric hospitalization following a 2-day stay on the medical floor status post intentional Tylenol overdose. Patient was medically cleared and transferred to our unit on 08/18/2018, having previously been seen on the psychiatric consult service. The patient had reported increasing stress with regard to school and relationship difficulties with her boyfriend. Patient reported that she had relied solely on her boyfriend for emotional support, which led to their breakup. After this conversation with her boyfriend the patient had taken 24 - 500mg pills of acetaminophen. Patient admits that she was scared and called her mother who encouraged her to go to the emergency room. While on our unit patient participated in group and recreational therapies. She is also involved her parents in a family meeting to ensure continuity with outpatient supports. Contact was made with her outpatient therapist and she was referred for local psychiatric medication management through the remainder of the school year. The patient was agreeable to discontinuation of escitalopram and initiation of sertraline. Sertraline was titrated to 50 mg over the course of her admission. Further titration to 75 mg was offered the day prior to discharge, but was declined when medications were handed out by nursing. Patient was honest in admitting she did not feel comfortable with further titration and is agreeable to following up with her outpatient psychiatric provider for dose changes in the future. The patient completed a safety plan prior to discharge which was personally reviewed by this provider. She is denying suicidality since her initial attempt, has been able to work on expressing her emotions to identified supports, and has been able to develop healthy coping skills to manage future anxiety. At this time it is felt the patient is not at acute risk of harm to herself, it is appropriate for discharge with ongoing outpatient psychiatric treatment. Day of Discharge Assessment Patient's case was reviewed and discussed during treatment team. Staff reports the patient has been doing well. She has an outpatient therapy appointment scheduled for this afternoon, and was hoping to attend. Patient is seen today to assess readiness for discharge. The patient states that her mood has improved, and she feels she has benefited from her time on the unit. Patient has admitted she feels she is better able to express her needs to outpatient supports, and denies ongoing suicidality. The patient states she is a bit nervous for discharge in regard to utilizing the told she has developed here and adjusting to a "new normal." She does admit that this anxiety is manageable. The patient does inform this provider that she only accepted 50 mg of sertraline this morning, as opposed to the 75 mg dose increase we had discussed yesterday. She does admit she is a bit hesitant for medication changes and would prefer more time on the lower dosage. We reviewed that future titration can be discussed with her outpatient psychiatric prescriber. The patient states that she has been appreciative of the skills she has learned on this unit, but feels she is ready to return home. Based on review of patient's case and current presentation, the patient appears appropriate for discharge with ongoing outpatient psychiatric follow-up. She does not appear to be at acute risk of harm to herself or others, and is able to verbalize a safety plan and outpatient supports she can contact with future needs. ROS: Constitutional: denied Cardiovascular: denied Respiratory: denied Gastrointestinal: denied Neurological: denied Psychiatric: denies symptoms other than stated above Total of at least 10 systems reviewed, pertinent positives as above and in HPI. Transition of Care Transition Of Care Record: was reviewed with the patient Advance Directives Advance Directives Information Provided: Yes Advance Directives: No Mental Health Advance Directive: No Advance Directives on File: No Living Will: No Power of Hot Man: No Advance Directives Reason:: Declines as Mental Health Visit. Risk Factors Assessment Male: No : Yes Do You Have Access To A Gun?: No Health Problems: No Mental Health Diagnoses: Yes Substance Use Disorders: No Previous Attempt: No Previous Psychiatric Hospitalization: No Smoker: No Protective Factors Assessment : No Responsible for Young Children: No Employed: No Supportive Family: Yes Tobacco Cessation at Discharge Tobacco Cessation Medication Prescribed at Discharge: Not Applicable/Non-Smoker Total Time Total Time Spent: Greater Than 30 Minutes Total Time Includes: Examination of the patient, Discharge Planning, Medication Reconciliation and Communication with other providers Hospital Course (1) Depression: 08/18 - DC Lexapro - Start Zoloft 25 mg today increasing to 50 mg tomorrow - Q 15 min checks for safety - Encourage participation in group and individual counseling - Family meeting - Psychiatric aftercare - Safety planning - Assist the patient to explore healthy coping strategies. - Coordinate care with current therapist, [facility] 08/19 -Increase sertraline to 50 mg daily. -Family meeting with parents. -Refer for outpatient psychiatric care. 08/20 - Increase sertraline to 75mg - Family meeting completed, reportedly went well Post Discharge Appointments Primary Care Physician Name Of Family Doctor: URI Denise MD Primary Care Date of Appointment with PCP: 08/27/18 Time of Appointment with PCP: 9:30am Provider Appointment Comment: [address] [place] [id number] Primary Care Release of Information: Obtained, Reviewed and Signed Psychiatrist Name of Psychiatrist: Chucky Hernandez - MEHRAN Grissom Psychiatrist's Date of Appointment with Psychiatrist: 08/26/18 Time of Appointment with Psychiatrist: 9am Psychiatric Appointment Comment: [facility] [address] Psychiatrist Release of Information: Obtained, Reviewed and Signed Therapist Name of Therapist: [facility] Therapist's Date of Therapist Appointment: 08/21/18 Time of Therapist Appointment: 1pm Therapy Appointment Comment: also 08/26 8am, 09/04 11am, 09/10 3pm, on the cancellation list for other time Therapist Release of Information: Obtained, Reviewed and Signed Estimator And Drafter Supervisor Name of Estimator And Drafter Supervisor: [facility] Phone Number for Estimator And Drafter Supervisor: [phone] Date of Appointment with Estimator And Drafter Supervisor: 08/24/18 Time of Appointment with Estimator And Drafter Supervisor: 3:30pm Case Management Appointment Comment: [address] [place] [id number] Smoking Cessation Counseling Tobacco Cessation Medication Prescribed at Discharge: Not Applicable/Non-Smoker Contact Information Discharge Discharge Address: [facility]: [address] [place] [address], [facility] [address], [place] [address] Contact Information Comment: Home: [address], [place] [address]
== END 2018-08-21 10:25 | disposition home or self-care (01) | DRG 881 ==
LOC: 3S 12:35